=== PATIENT | female | born 1960 | race African-American/Black ===

== ENCOUNTER 2016-08-30 19:05 | Emergency (ER) | payer MEDICAID ==
[~2016-08-30] VITALS: Ht 157.5 cm; Wt 78.9 kg
[~2016-08-30 19:05] MED LIST: ASPIR 8181 MG ORAL; CLARITIN10 M2 ORAL; FLUCONAZOLE100 MG ORAL; HUMALOG100 UNIT/1 SUBQ; HUMALOG100 UNIT/3 SUBQ; LANTUS SOL100 UNIT/1 SUBQ; LEVOTHYROXINE50 MCG ORAL; LOSARTAN POTASS50 MG ORAL; METRONIDAZOLE500 MG ORAL; PHENAZOPYRIDIN100 MG ORAL; ZOFRAN ODT4 MG ORAL; ZOFRAN4 M3 ORAL; ZYRTEC10 MG ORAL
[2016-08-30] MEDS ORDERED: Methocarbamol 750mg tab ORAL ONE (20:30)
[2016-08-30] MEDS ORDERED: Norco 5mg/325mg tab ORAL ONE (20:30)
[2016-08-30] MEDS ORDERED: TYLENOL EXTRA500 MG ORAL (20:50)
[2016-08-30] MEDS ORDERED: ROBAXIN500 MG PO (20:50)
[2016-08-30 21:41] VITALS: BP 104/62
--- NOTE | 2016-08-30 22:00 | Emergency Room Report ---
History of Present Illness General Chief Complaint: General Complaint Present Illness HPI the patient is a 56-year-old female with a history of lumbar fusion 3 years prior presenting with lower back pain and bilateral leg pain. The patient states that she noticed mid lower back pain as well as cramping of both legs which began last night. Pain is described as an 8/10 dull ache of the back which radiates down both legs. The patient describes this pain as a tightness/ cramping. The patient states that she's been on pain management in the past for similar symptoms but has not taken any medications recently. pain is worse with walking and bending over. The patient denies any new injury. the patient denies any numbness or tingling and denies any other symptoms Allergies: Coded Allergies: CODEINE (Unverified Allergy, Unknown, 02/10/15) KETOROLAC (Verified Allergy, Unknown, 04/24/16) PENICILLIN (Unverified Allergy, Unknown, 02/10/15) SULFA (SULFONAMIDE ANTIBIOTICS) (Unverified Allergy, Unknown, 02/10/15) Patient History Past Medical History: see triage record Pertinent Family History: none Last Menstrual Period: 2005 Reviewed Nursing Documentation: PMH: Agreed, PSxH: Agreed Nursing Documentation-PMH Past Medical History: No History, Except For Hx Cardiac Problems: No - Fibromyalgia, Mitral Valve Prolapse Hx Hypertension: Yes Hx Pacemaker: No Hx Asthma: No Hx COPD: No Hx Diabetes: Yes Hx Cancer: Yes - history of thyroid CA Hx Gastrointestinal Problems: No Hx Dialysis: No Hx Neurological Problems: No Hx Seizures: No Review of Systems All Other Systems: negative except mentioned in HPI Physical Exam Vital Signs Date Time Temp Pulse Resp B/P Pulse Ox O2 Delivery O2 Flow Rate FiO2 08/30/16 19:25 98.2 81 16 94/60 98 Room Air Sp02 EP Interpretation: reviewed, normal General Appearance: no apparent distress, alert, GCS 15, non-toxic Head: normocephalic, atraumatic Eyes: bilateral eye PERRL, bilateral eye normal inspection ENT: hearing grossly normal, normal pharynx, no angioedema, normal voice Neck: full range of motion, supple, no bony tend, supple/symm/no masses Respiratory: chest non-tender, lungs clear, normal breath sounds, speaking full sentences Cardiovascular #1: regular rate, rhythm, no edema Musculoskeletal: back normal, digits/nails normal, gait/station normal, normal range of motion, no calf tenderness, tender - TTP over bilat buttocks Neurologic: alert, oriented x3, responsive, motor strength/tone normal, sensory intact, normal gait, speech normal Psychiatric: judgement/insight normal, memory normal, mood/affect normal, no suicidal/homicidal ideation Skin: normal color, no rash, warm/dry, well hydrated Lymphatic: no adenopathy Medical Decision Making PA Attestation Dr. Wheeler is my supervising physician. Patient management was discussed with my supervising physician Diagnostic Impression: Primary Impression: Muscle spasm ER Course the patient is a 56-year-old female with a history of lumbar fusion 3 years prior presenting with lower back pain and bilateral leg pain. Ddx considered include but not limited to sprain/strain, sciatica, muscle spasm , fracture, contusion PE: vitals WNL. NAD Lumbar spine: No midline tenderness. There is bilateral paraspinous tenderness. No step-offs. Full active range of motion of the back. There is tenderness to palpation over bilateral buttocks. Normal gait. Skin warm and dry. No erythema. No edema The patient is given Robaxin and one [place] for pain with good relief. The patient is advised she needs to followup with primary care doctor and possibly pain management for further care. The patient is discharged home with a prescription for Tylenol and Robaxin. ER precautions are given Last Vital Signs Date Time Temp Pulse Resp B/P Pulse Ox O2 Delivery O2 Flow Rate FiO2 08/30/16 19:25 98.2 81 16 94/60 98 Room Air Status: improved Disposition: HOME, SELF-CARE Condition: Improved Scripts Acetaminophen* (TYLENOL EXTRA STRENGTH*) 500 Mg Tablet 500 MG ORAL Q8H Y for Prn Headache/Temp > 101, #30 TAB 0 Refills Prov: TERZIAN,NICHOLAS P.A. 08/30/16 Methocarbamol* (ROBAXIN*) 500 Mg Tablet 500 MG PO TID, #21 TAB 0 Refills Prov: TERZIAN,NICHOLAS P.A. 08/30/16 Patient Instructions: Muscle Strain Additional Instructions: I discussed my findings with the patient. All questions and concerns have been answered. Treatment and medication compliance have been addressed. I advised the patient that they need to follow up with PMD in 3-5 days. Return to ED if pain remains or worsens, numbness or tingling occurs, new rash is noticed, fever is noticed, or if needed for any reason. Patient verbalized understanding of discharge instructions. NICHOLAS CHAN Aug 30, 2016 22:00
== END 2016-08-30 21:41 | disposition home or self-care (01) ==
LOC: EMR 19:37
DX: M62.830 Muscle spasm of back (principal); Z98.1 Arthrodesis status; E11.9 Type 2 diabetes mellitus without complications; Z85.850 Personal history of malignant neoplasm of thyroid; Z88.0 Allergy status to penicillin; Z88.2 Allergy status to sulfonamides; Z88.6 Allergy status to analgesic agent
CPT/HCPCS: 99284